=== PATIENT | female | born 1995 | race Two or more races ===

== ENCOUNTER → 2017-09-20 | Outpatient (CLI) | payer BC | END | disposition home or self-care (01) | LOC: KCIC US 15:19 | DX: R10.2 Pelvic and perineal pain (principal) | CPT/HCPCS: 76830; 76856 ==

== ENCOUNTER 2017-10-30 16:02 | Emergency (ER) | payer BC ==
[2017-10-30 16:25] LABS: URINE HCG POC HCG NEGATIVE (Negative)
[2017-10-30] MEDS ORDERED: LIDO:MAALOX 1:1 20 ML SINGLE DOSE. PO (16:45)
[2017-10-30 16:46] LABS: ADD MAN DIFF? NO
[2017-10-30 16:48] LABS: BASO # 0.1 x10^3/uL (0.0-0.2); BASO % 1 % (0-3); EOS # 0.2 x10^3/uL (0.0-0.7); EOS % 2 % (0-3); HEMOGLOBIN 13.1 g/dL (12.0-15.5); LYMPH # 3.6 x10^3/uL (1.0-4.8); LYMPH % 29 % (24-48); MEAN CORPUSCULAR HEMOGLOBIN 29 pg (25-35); MEAN CORPUSCULAR HGB CONC 34 g/dL (31-37); MEAN CORPUSCULAR VOLUME 88 fL (79-100); MONO # 0.7 x10^3/uL (0.0-1.1); MONO % 6 % (0-9); NEUT # 7.7 x10^3uL (1.8-7.7); NEUT % 63 % (31-73); PLATELET COUNT 365 x10^3/uL (140-400); RED BLOOD COUNT 4.46 x10^6/uL (3.50-5.40); RED CELL DISTRIBUTION WIDTH 12.6 % (11.5-14.5); WHITE BLOOD COUNT 12.2 x10^3/uL (4.0-11.0)
[2017-10-30] MEDS: ONDANSETRON PF 4 MG/2 ML VIAL. IV (16:57)
[2017-10-30] MEDS: FAMOTIDINE 20 MG/2 ML VIAL IVP (16:57)
[2017-10-30] MEDS: LIDO:MAALOX:DONNATAL 1:1:1 15 ML SINGLE DOSE SWSW (16:58)
[2017-10-30 17:00] LABS: ANION GAP 10 (6-14); BILIRUBIN,URINE NEGATIVE (NEG); BLOOD UREA NITROGEN 11 mg/dL (7-20); BUN/CREATININE RATIO 16 (6-20); CALCIUM 9.1 mg/dL (8.5-10.1); CARBON DIOXIDE 27 mmol/L (21-32); CHLORIDE 102 mmol/L (98-107); CLARITY,URINE CLEAR; COLOR,URINE YELLOW; CREATININE 0.7 mg/dL (0.6-1.0); GFR 103.7; GLUCOSE 91 mg/dL (70-99); GLUCOSE,URINE NEGATIVE (NEG); NITRITE,URINE NEGATIVE (NEG); PH,URINE 6.5; POTASSIUM 4.4 mmol/L (3.5-5.1); PROTEIN,URINE NEGATIVE (NEG-TRACE); SODIUM 139 mmol/L (136-145); UROBILINOGEN,URINE 0.2 mg/dL (0.2 mg/dL)
[2017-10-30 17:05] LABS: ALBUMIN 3.7 g/dL (3.4-5.0); ALBUMIN/GLOBULIN RATIO 1.1 (1.0-1.7); ALK PHOS 121 U/L (46-116); ALT (SGPT) 23 U/L (14-59); AST (SGOT) 16 U/L (15-37); LIPASE 95 U/L (73-393); NEG OBC SER NEG; POS OBC SER POS; PREG TEST PT QUAL NEGATIVE (NEG); TOTAL BILIRUBIN 0.3 mg/dL (0.2-1.0); TOTAL PROTEIN 7.1 g/dL (6.4-8.2)
[2017-10-30 17:11] LABS: BACTERIA,URINE FEW /HPF (0-FEW); SQUAMOUS EPITHELIAL CELL,UR MOD /LPF; WBC,URINE OCC /HPF (0-4)
== END 2017-10-30 19:33 | disposition home or self-care (01) ==
LOC: ER 16:02
DX: R10.13 Epigastric pain (principal); R11.2 Nausea with vomiting, unspecified; R19.7 Diarrhea, unspecified
CPT/HCPCS: 36415; 76700; 80053; 81001; 81025; 83690; 84703; 85025; 96374; 96375; 99285-25; J2405; S0028

== ENCOUNTER → 2020-03-16 | Outpatient (CLI) | payer BC ==
[2017-10-30 16:09] VITALS: BP 123/83
[~2020-03-16] MED LIST: FAMO-63 PO; OMEP20TA63 PO; ONDA4TAB7 PO; TRAM50TA PO
[2020-03-16 15:55] LABS: BASO # 0.1 x10^3/uL (0.0-0.2); BASO % 1 % (0-3); EOS # 0.2 x10^3/uL (0.0-0.7); EOS % 2 % (0-3); HEMATOCRIT 39.2 % (36.0-47.0); HEMOGLOBIN 13.4 g/dL (12.0-15.5); LYMPH # 3.7 x10^3/uL (1.0-4.8); LYMPH % 38 % (24-48); MEAN CORPUSCULAR HEMOGLOBIN 30 pg (25-35); MEAN CORPUSCULAR HGB CONC 34 g/dL (31-37); MEAN CORPUSCULAR VOLUME 88 fL (79-100); MONO # 0.6 x10^3/uL (0.0-1.1); MONO % 6 % (0-9); NEUT # 5.1 x10^3/uL (1.8-7.7); NEUT % 53 % (31-73); PLATELET COUNT 339 x10^3/uL (140-400); RED BLOOD COUNT 4.48 x10^6/uL (3.50-5.40); RED CELL DISTRIBUTION WIDTH 13.1 % (11.5-14.5); WHITE BLOOD COUNT 9.7 x10^3/uL (4.0-11.0)
[2020-03-16 17:06] LABS: FREE T4 0.82 ng/dL (0.76-1.46); THYROID STIM HORMONE (TSH) 1.468 uIU/mL (0.358-3.74)
[2020-03-16 17:07] LABS: CHOLESTEROL/HDL RATIO 3.3
[2020-03-17 00:09] LABS: HEMOGLOBIN A1C 5.5 % (4.8-5.6)
[2020-03-17 01:09] LABS: PROLACTIN 32.5 ng/mL (4.8-23.3); TESTOSTERONE TOTAL 39 ng/dL (8-48)
== END | disposition home or self-care (01) ==
LOC: LAB 15:14
PROVIDERS: ATTEND Obstetrics & Gynecology
DX: N93.9 Abnormal uterine and vaginal bleeding, unspecified (principal)
CPT/HCPCS: 36415; 80061; 82627; 83036; 84146; 84403; 84439; 84443; 85025

== ENCOUNTER → 2020-03-26 | Outpatient (CLI) | payer BC ==
[2017-10-30 16:09] VITALS: BP 123/83
--- NOTE | 2020-03-26 16:59 | RAD ---
INDICATION: Irregular menses COMPARISON: None. TECHNIQUE: Grayscale and color ultrasound images uterus and adnexa. Transabdominal and transvaginal images obtained. Transvaginal images were needed to better visualize structures that were limited on transabdominal imaging. FINDINGS: Uterus: 75 x 69 x 39 mm. Endometrial Stripe: 4 mm. Right Ovary: 34 x 25 x 21 mm. Left Ovary: 21 x 19 x 17 mm. Vascular flow identified to bilateral ovaries. There is a small amount of fluid within the endometrial stripe measuring 3 to 4 mm IMPRESSION: * Small amount of fluid within the endometrial stripe. This could be secondary to some fluid and debris or early gestational sac. Would correlate with hCG given the presence of this finding. No pole is seen. * 18 mm suspected echogenic lesion of the right ovary. One possible cause would include a hemorrhagic cyst or alternative causes such as small teratoma Electronically signed by: Varun Molina MD (03/26/2020 4:56 PM) [id number]
== END ==
LOC: US 15:47
PROVIDERS: ATTEND Obstetrics & Gynecology
DX: N93.9 Abnormal uterine and vaginal bleeding, unspecified (principal)
CPT/HCPCS: 76830; 76856

== ENCOUNTER 2020-07-21 08:59 | Observation (INO) | payer BC ==
[2017-10-30 16:09] VITALS: BP 123/83
[~2020-07-21] VITALS: Ht 160 cm; Wt 88.9 kg
[2020-07-21] MEDS ORDERED: IV RINGERS,LACTATED 1000ML 1,000 ML IV SCH (09:15)
[2020-07-21 09:35] LABS: BILIRUBIN,URINE NEGATIVE (NEG); CLARITY,URINE CLOUDY; COLOR,URINE AMBER; NITRITE,URINE NEGATIVE (NEG); PH,URINE 6.5 (<5.0-8.0); PROTEIN,URINE 30 mg/dL (NEG-TRACE); UROBILINOGEN,URINE 0.2 mg/dL (0.2 mg/dL)
[2020-07-21 09:54] LABS: BACTERIA,URINE 0 /HPF (0-FEW); RBC,URINE TNTC /HPF (0-2)
== END 2020-07-21 11:09 | disposition home or self-care (01) ==
LOC: 3 SO LND 08:59
PROVIDERS: ADMIT Obstetrics & Gynecology; ATTEND Obstetrics & Gynecology
DX: O99.891 Other specified diseases and conditions complicating pregnancy (principal); M54.5 Low back pain; O26.892 Other specified pregnancy related conditions, second trimester; R31.9 Hematuria, unspecified; Z3A.21 21 weeks gestation of pregnancy; Z79.82 Long term (current) use of aspirin
CPT/HCPCS: 81001; 87086; G0378; G0379; 59025

== ENCOUNTER → 2020-08-17 | Outpatient (CLI) | payer OTHER ==
[2017-10-30 16:09] VITALS: BP 123/83
[2020-08-17 10:44] LABS: BASO # 0.1 x10^3/uL (0.0-0.2); BASO % 1 % (0-3); EOS # 0.1 x10^3/uL (0.0-0.7); EOS % 1 % (0-3); HEMATOCRIT 36.2 % (36.0-47.0); HEMOGLOBIN 12.2 g/dL (12.0-15.5); LYMPH # 1.7 x10^3/uL (1.0-4.8); LYMPH % 14 % (24-48); MEAN CORPUSCULAR HEMOGLOBIN 30 pg (25-35); MEAN CORPUSCULAR HGB CONC 34 g/dL (31-37); MEAN CORPUSCULAR VOLUME 89 fL (79-100); MONO # 0.5 x10^3/uL (0.0-1.1); MONO % 4 % (0-9); NEUT # 10.2 x10^3/uL (1.8-7.7); NEUT % 81 % (31-73); PLATELET COUNT 314 x10^3/uL (140-400); RED BLOOD COUNT 4.06 x10^6/uL (3.50-5.40); RED CELL DISTRIBUTION WIDTH 13.7 % (11.5-14.5); WHITE BLOOD COUNT 12.6 x10^3/uL (4.0-11.0)
== END ==
LOC: LAB 09:18
PROVIDERS: ATTEND Obstetrics & Gynecology
DX: O09.92 Supervision of high risk pregnancy, unspecified, second trimester (principal); Z3A.19 19 weeks gestation of pregnancy
CPT/HCPCS: 36415; 82950; 85025

== ENCOUNTER 2020-09-02 14:48 | Observation (INO) | payer BC, OTHER ==
[~2020-09-02] VITALS: Ht 160 cm; Wt 92.2 kg
[2020-09-02 15:45] LABS: BILIRUBIN,URINE NEGATIVE (NEG); CLARITY,URINE CLEAR; COLOR,URINE YELLOW; NITRITE,URINE NEGATIVE (NEG); PH,URINE 6.5 (<5.0-8.0); PROTEIN,URINE NEGATIVE (NEG-TRACE); UROBILINOGEN,URINE 0.2 mg/dL (0.2 mg/dL)
--- NOTE | 2020-09-02 15:47 | ED.ADGEN ---
Past Medical History Past Medical History: No Pertinent History Past Surgical History: No Surgical History Smoking Status: Never Smoker Alcohol Use: Occasionally Drug Use: None General Adult EDM: Chief Complaint: Palpitations HPI: HPI: Patient is a 25 year old female who presents emergency department with complaints of feeling lightheaded, and like her heart is racing. Patient reports she has been having problems with the symptoms intermittently for the last 2 weeks. 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 Patient reports she has a history of anxiety and depression that she started taking Prozac for approximately 1 week ago. She states that the symptoms have not changed since starting the medication. She denies any cough, body aches, chest pain, fever, sore throat, abdominal pain, dysuria, or increased urinary frequency. Patient denies any vaginal bleeding, or irregular vaginal discharge. She denies any headache, vision changes, numbness, tingling, weakness, or difficulty speaking. Patient is currently , she is 1, para 0, her last menstrual cycle was on January 30, 2020. Patient reports that she has seen for the . Patient reports that she has had nausea and vomiting throughout her , she usually vomits twice a day. She denies any hematemesis, she currently denies any pain. Review of Systems: Review of Systems: Complete ROS is negative unless otherwise noted in HPI. Current Medications: Current Medications Medications (Trade) Dose Ordered Sig/Pebbles Start Time Stop Time Status Last Admin Dose Admin Sodium Chloride 1,000 ml @ 1,000 mls/hr 1X ONCE 09/02/20 16:00 09/02/20 16:59 DC 09/02/20 16:35 1,000 MLS/HR Allergies: Allergies: Allergies Coded Allergies Type Severity Reaction Last Updated Verified No Known Drug Allergies 07/21/20 No Physical Exam: PE: See Above Constitutional: Well developed, well nourished, no acute distress, non-toxic appearance. [] HENT: Normocephalic, atraumatic, bilateral external ears normal, nose normal. [] Eyes: PERRLA, EOMI, conjunctiva normal, no discharge. [] Neck: Normal range of motion, no stridor. [] Cardiovascular:Heart rate regular rhythm Lungs & Thorax: Respirations even and unlabored, no retractions, no respiratory distress Abdomen: Palpable uterine fundus above the umbilicus, nontender Skin: Warm, dry, no erythema, no rash. [] Extremities: No cyanosis, ROM intact, no edema. [] Neurologic: Alert and oriented X 3, no focal deficits noted. [] Psychologic: Affect normal, judgement normal, mood normal. [] Current Patient Data: Labs: Laboratory Tests Test 09/02/20 14:53 09/02/20 16:08 Urine Collection Type Unknown Urine Color Yellow Urine Clarity Clear Urine pH 6.5 (<5.0-8.0) Urine Specific [place] <=1.005 (1.000-1.030) Urine Protein Negative mg/dL (NEG-TRACE) Urine Glucose (UA) Negative mg/dL (NEG) Urine Ketones (Stick) Negative mg/dL (NEG) Urine Blood Negative (NEG) Urine Nitrite Negative (NEG) Urine Bilirubin Negative (NEG) Urine Urobilinogen Dipstick 0.2 mg/dL (0.2 mg/dL) Urine Leukocyte Esterase Negative (NEG) Urine RBC 0 /HPF (0-2) Urine WBC 5-10 /HPF (0-4) Urine Squamous Epithelial Cells Mod /LPF Urine Bacteria Many /HPF (0-FEW) White Blood Count 12.4 x10^3/uL (4.0-11.0) H Red Blood Count 4.31 x10^6/uL (3.50-5.40) Hemoglobin 12.7 g/dL (12.0-15.5) Hematocrit 38.1 % (36.0-47.0) Mean Corpuscular Volume 88 fL (79-100) Mean Corpuscular Hemoglobin 30 pg (25-35) Mean Corpuscular Hemoglobin Concent 33 g/dL (31-37) Red Cell Distribution Width 13.5 % (11.5-14.5) Platelet Count 310 x10^3/uL (140-400) Neutrophils (%) (Auto) 73 % (31-73) Lymphocytes (%) (Auto) 19 % (24-48) L Monocytes (%) (Auto) 6 % (0-9) Eosinophils (%) (Auto) 1 % (0-3) Basophils (%) (Auto) 1 % (0-3) Neutrophils # (Auto) 9.1 x10^3/uL (1.8-7.7) H Lymphocytes # (Auto) 2.4 x10^3/uL (1.0-4.8) Monocytes # (Auto) 0.7 x10^3/uL (0.0-1.1) Eosinophils # (Auto) 0.1 x10^3/uL (0.0-0.7) Basophils # (Auto) 0.1 x10^3/uL (0.0-0.2) Sodium Level 135 mmol/L (136-145) L Potassium Level 4.0 mmol/L (3.5-5.1) Chloride Level 102 mmol/L (98-107) Carbon Dioxide Level 23 mmol/L (21-32) Anion Gap 10 (6-14) Blood Urea Nitrogen 8 mg/dL (7-20) Creatinine 0.5 mg/dL (0.6-1.0) L Estimated GFR (Cockcroft-Gault) 149.1 BUN/Creatinine Ratio 16 (6-20) Glucose Level 69 mg/dL (70-99) L Calcium Level 8.7 mg/dL (8.5-10.1) Total Bilirubin 0.2 mg/dL (0.2-1.0) Aspartate Amino Transferase (AST) 14 U/L (15-37) L Alanine Aminotransferase (ALT) 22 U/L (14-59) Alkaline Phosphatase 120 U/L (46-116) H Total Protein 6.5 g/dL (6.4-8.2) Albumin 2.7 g/dL (3.4-5.0) L Albumin/Globulin Ratio 0.7 (1.0-1.7) L Laboratory Tests 09/02/20 16:08 Laboratory Tests 09/02/20 16:08 Vital Signs: Vital Signs Date Time Temp Pulse Resp B/P (MAP) Pulse Ox O2 Delivery O2 Flow Rate FiO2 09/02/20 17:14 88 18 104/60 (75) 100 Room Air 09/02/20 15:04 98.1 98.1 EKG: EK-NS rhythm, rate 94, normal ECG, no STEMI, read by Dr. Nino [] Heart Score: Risk Factors: Risk Factors: DM, Current or recent (<one month) smoker, HTN, HLP, family history of CAD, obesity. Risk Scores: Score 0 - 3: 2.5% MACE over next 6 weeks - Discharge Home Score 4 - 6: 20.3% MACE over next 6 weeks - Admit for Clinical Observation Score 7 - 10: 72.7% MACE over next 6 weeks - Early Invasive Strategies Radiology/Procedures: Radiology/Procedures: PROCEDURE: OB LIMITED INDICATION: Reason: PT FEELS ANXIOUS / Spl. Instructions: / History: Follow- up COMPARISON: July 13, 2020 FINDINGS: Focused limited ultrasound images are obtained through the uterus movement is seen. Cardiac activity is identified at 137 bpm. Breech presentation at time of exam. The cervix is 5 cm. Biparietal diameter 70 mm, 28 weeks 1 day Head circumference 270 mm, 29 weeks 4 day. Abdominal circumference 245 mm, 28 week 5 day Femur length 53 mm, 28 weeks 1 day. Placenta is anterior. Estimated weight 1248 g, 68th percentile IMPRESSION: * Intrauterine is identified with estimated gestational age of 28 weeks and 5 days with an estimated due date for 11/20/2020. Estimated weight is on the 68th percentile with a positive heartbeat. * Breech presentation at time of exam Electronically signed by: Varun Molina MD (09/02/2020 4:14 PM) DESKTOP- [id number] Course & Med Decision Making: Course & Med Decision Making Pertinent Labs and Imaging studies reviewed. (See chart for details) 2570- I spoke with Dr. Linares and advised of treatment plan and pt in the ER. Per Dr. Linares after ER work up send pt upstairs for stress test. CBC was unremarkable; CMP revealed sodium 135, glucose of 69, alk phos of 120, otherwise unremarkable; UA was concerning for 5-10 white blood cells and many bacteria will treat as the patient is EKG revealed no acute changes Patient was given a liter of fluid in the emergency department, she reported feeling better after IV fluids. Prescription was written for Macrobid 100 mg p.o. twice daily x7 days. I advised the patient of her hypoglycemia and educated her that low blood sugar could be what is causing her symptoms. I encouraged patient to eat regularly and to try having a snack when her symptoms developed. I instructed her to follow-up with Dr. Linares's office in the next few days, return to the ER symptoms worsen. Patient was then taken to the third floor for stress monitoring. [] Chela Disclaimer: Dragon Disclaimer: This electronic medical record was generated, in whole or in part, using a voice recognition dictation system. Departure Departure Impression: Primary Impression: UTI (urinary tract infection) Additional Impressions: Palpitations Hypoglycemia Disposition: 01 DC HOME SELF CARE/HOMELESS Condition: STABLE Referrals: Mark GAGE MD (PCP) Patient Instructions: Hypoglycemia, Gurc-gz-Rnru, Palpitations, Liyx-ec-Nrlv, - Urinary Tract Infection Additional Instructions: Fill prescription(s) and use as directed. Avoid bladder irritants such as caffeine, carbonation, and spicy foods. Increase clear fluids. Your blood sugar was only 69 today with lab work, your symptoms may be due to low blood sugar, I recommend that you eat frequent snacks with good amounts of protein. Follow up with Dr Linares in the next 1-2 days, return to the ER if symptoms worsen or fever develops. Scripts Nitrofurantoin Monohyd/M-Cryst (MACROBID 100 MG CAPSULE) 100 Mg Capsule 1 CAP PO BID for 7 Days, #14 CAP 0 Refills Prov: KEE GARCIA APRN 09/02/20 Problem Qualifiers KEE GARCIA APRN Sep 02, 2020 15:47
[2020-09-02 15:54] LABS: BACTERIA,URINE MANY /HPF (0-FEW); RBC,URINE 0 /HPF (0-2)
[2020-09-02] MEDS ORDERED: IV NORMAL SALINE 1000ML BAG 1,000 ML IV ONE (16:00)
--- NOTE | 2020-09-02 16:17 | RAD ---
INDICATION: Reason: PT FEELS ANXIOUS / Spl. Instructions: / History: Follow-up COMPARISON: July 13, 2020 FINDINGS: Focused limited ultrasound images are obtained through the uterus movement is seen. Cardiac activity is identified at 137 bpm. Breech presentation at time of exam. The cervix is 5 cm. Biparietal diameter 70 mm, 28 weeks 1 day Head circumference 270 mm, 29 weeks 4 day. Abdominal circumference 245 mm, 28 week 5 day Femur length 53 mm, 28 weeks 1 day. Placenta is anterior. Estimated weight 1248 g, 68th percentile IMPRESSION: * Intrauterine is identified with estimated gestational age of 28 weeks and 5 days with a n estimated due date for 11/20/2020. Estimated weight is on the 68th percentile with a positive heartbeat. * Breech presentation at time of exam Electronically signed by: Varun Molina MD (09/02/2020 4:14 PM) [id number]
[2020-09-02 16:19] LABS: BASO # 0.1 x10^3/uL (0.0-0.2); BASO % 1 % (0-3); EOS # 0.1 x10^3/uL (0.0-0.7); EOS % 1 % (0-3); HEMATOCRIT 38.1 % (36.0-47.0); HEMOGLOBIN 12.7 g/dL (12.0-15.5); LYMPH # 2.4 x10^3/uL (1.0-4.8); LYMPH % 19 % (24-48); MEAN CORPUSCULAR HEMOGLOBIN 30 pg (25-35); MEAN CORPUSCULAR HGB CONC 33 g/dL (31-37); MEAN CORPUSCULAR VOLUME 88 fL (79-100); MONO # 0.7 x10^3/uL (0.0-1.1); MONO % 6 % (0-9); NEUT # 9.1 x10^3/uL (1.8-7.7); NEUT % 73 % (31-73); PLATELET COUNT 310 x10^3/uL (140-400); RED BLOOD COUNT 4.31 x10^6/uL (3.50-5.40); RED CELL DISTRIBUTION WIDTH 13.5 % (11.5-14.5); WHITE BLOOD COUNT 12.4 x10^3/uL (4.0-11.0)
[2020-09-02 16:29] LABS: CALCIUM 8.7 mg/dL (8.5-10.1); CREATININE 0.5 mg/dL (0.6-1.0); GFR 149.1
[2020-09-02 16:38] LABS: ALBUMIN 2.7 g/dL (3.4-5.0); ALBUMIN/GLOBULIN RATIO 0.7 (1.0-1.7); TOTAL BILIRUBIN 0.2 mg/dL (0.2-1.0); TOTAL PROTEIN 6.5 g/dL (6.4-8.2)
[2020-09-02] MEDS ORDERED: NITR100C62 PO (17:38)
[2020-09-02 17:44] VITALS: BP 112/78
--- NOTE | 2020-09-02 18:09 | EKG ---
[facility] [address] [place] [address] Test Date: 2020-09-02 Test Time: 15:23:52 Pat Name: GUILHERME العلي Department: Room: 389 1 Gender: F [employer] Employee: : 1995 Requested By: KEE GARCIA Order Number: [id number] Reading MD: Rafita Guerrero Measurements Intervals [place] Rate: 94 P: 21 NV: 136 QRS: 3 QRSD: 80 T: 6 QT: 354 QTc: 443 Interpretive Statements SINUS RHYTHM NORMAL ECG RI6.01 No previous ECG available for comparison Electronically Signed On 09-08-2020 10:06:32 PEDICURIST by Rafita Guerrero
[2020-11-15] MEDS ORDERED: IBUP-1027 PO (14:01)
== END 2020-09-02 18:50 | disposition home or self-care (01) ==
LOC: ER 14:48 → 3 SO LND 17:19
PROVIDERS: ADMIT Obstetrics & Gynecology; ATTEND Obstetrics & Gynecology
DX: O23.43 Unspecified infection of urinary tract in pregnancy, third trimester (principal); O32.1XX0 Maternal care for breech presentation, not applicable or unspecified; O99.283 Endocrine, nutritional and metabolic diseases complicating pregnancy, third trimester; E16.2 Hypoglycemia, unspecified; O26.893 Other specified pregnancy related conditions, third trimester; R00.2 Palpitations; Z3A.28 28 weeks gestation of pregnancy
CPT/HCPCS: 36415; 59025; 76815; 80053; 81001; 85025; 87086; 93005; 96360; 99285; G0378; J7030; G0379

== ENCOUNTER → 2020-09-15 | Outpatient (CLI) | payer OTHER ==
[2020-09-02 17:44] VITALS: BP 112/78
[~2020-09-15] MED LIST changes: +NITR100C62 PO
--- NOTE | 2020-09-15 17:08 | CARD ---
MR#: [id number] Date of Study: 09/15/2020 Ordering Physician: SORIN DUPREE, Referring Physician: SORIN DUPREE, Tech: Alicia Ernandez [facility] APPROVED REPORT EXAM: Two-dimensional and M-mode echocardiogram with Doppler and color Doppler. Other Information Quality : Technically LimitedHR: 96bpm Rhythm : NSR INDICATION Palpitations 2D DIMENSIONS RVDd3.1 (2.9-3.5cm)Left Atrium(2D)3.1 (1.6-4.0cm) IVSd1.2 (0.7-1.1cm)Aortic Root(2D)2.5 (2.0-3.7cm) LVDd3.8 (3.9-5.9cm)LVOT Diameter2.0 (1.8-2.4cm) PWd0.9 (0.7-1.1cm)LVDs2.3 (2.5-4.0cm) FS (%) 38.5 %SV43.1 ml Aortic Valve AoV Peak Shamir.112.3cm/sAoV VTI19.8cm AO Peak GR.5.0mmHgLVOT Peak Shamir.95.4cm/s AO Mean GR.2mmHgAVA (VMAX)2.78cm2 Mitral Valve MV E Zubyjvnb39.1cm/sMV DECEL SOVI936mn MV A Ldgeeuwi62.8cm/sE/A Ratio1.2 LEFT VENTRICLE The left ventricle is normal size. There is normal left ventricular wall thickness. The left ventricu lar systolic function is normal and the ejection fraction is within normal range. Estimated ejection fraction 55-60%. There is normal LV segmental wall motion. The left ventricular diastolic function a nd filling is normal for age. RIGHT VENTRICLE The right ventricle is normal size. There is normal right ventricular wall thickness. The right ventr icular systolic function is normal. ATRIA The left atrium size is normal. The right atrium size is normal. The interatrial septum is intact wit h no evidence for an atrial septal defect or patent foramen ovale as noted on 2-D or Doppler imaging. AORTIC VALVE The aortic valve is normal in structure and function. Doppler and Color Flow revealed no significant aortic regurgitation. There is no significant aortic valvular stenosis. MITRAL VALVE The mitral valve is normal in structure and function. There is no evidence of mitral valve prolapse. There is no mitral valve stenosis. Doppler and Color-flow revealed trace mitral regurgitation. TRICUSPID VALVE The tricuspid valve is normal in structure and function. Doppler and Color Flow revealed no tricuspid valve regurgitation noted. There is no tricuspid valve stenosis. PULMONIC VALVE The pulmonary valve is normal in structure and function. Doppler and Color Flow revealed no pulmonic valvular regurgitation. GREAT VESSELS The aortic root is normal in size. The ascending aorta is normal in size. The IVC is normal in size a nd collapses >50% with inspiration. PERICARDIAL EFFUSION There is no evidence of significant pericardial effusion. Critical Notification Critical Value: No <Conclusion> The left ventricle is normal size. The left ventricular systolic function is normal and the ejection fraction is within normal range. Estimated ejection fraction 55-60%. Doppler and Color Flow revealed no significant aortic regurgitation. There is no significant aortic valvular stenosis. Doppler and Color-flow revealed trace mitral regurgitation. Doppler and Color Flow revealed no tricuspid valve regurgitation noted. Signed by : Kory Reddy MD Electronically Approved : 09/15/2020 17:07:49
== END ==
LOC: ECHO 14:46
PROVIDERS: ATTEND Internal Medicine Cardiovascular Disease
DX: R00.2 Palpitations (principal)
CPT/HCPCS: 93306

== ENCOUNTER 2020-12-23 23:48 | Emergency (ER) | payer OTHER ==
[~2020-12-23] VITALS: Ht 160 cm; Wt 88.0 kg
[~2020-12-23 23:48] MED LIST changes: +IBUP-1027 PO
[2020-12-24] MEDS ORDERED: MORPHINE SULFATE 10 MG/ML VIAL. ONE (00:28)
[2020-12-24] MEDS ORDERED: KETOROLAC 30 MG/ML VIAL. ONE (00:29)
[2020-12-24] MEDS ORDERED: ONDANSETRON PF 4 MG/2 ML VIAL. ONE (00:29)
[2020-12-24] MEDS ORDERED: MORPHINE SULFATE 10 MG/ML VIAL. IV ONE ×2 (00:30→01:15)
[2020-12-24] MEDS ORDERED: ONDANSETRON PF 4 MG/2 ML VIAL. IVP ONE (00:30)
[2020-12-24] MEDS ORDERED: KETOROLAC 30 MG/ML VIAL. IVP ONE (00:30)
[2020-12-24] MEDS ORDERED: IV NORMAL SALINE 1000ML BAG 1,000 ML IV ONE (00:30)
[2020-12-24 00:47] LABS: BASO # 0.1 x10^3/uL (0.0-0.2); BASO % 1 % (0-3); EOS # 0.6 x10^3/uL (0.0-0.7); EOS % 6 % (0-3); HEMATOCRIT 37.5 % (36.0-47.0); HEMOGLOBIN 12.5 g/dL (12.0-15.5); LYMPH % 18 % (24-48); MEAN CORPUSCULAR HEMOGLOBIN 29 pg (25-35); MEAN CORPUSCULAR HGB CONC 33 g/dL (31-37); MEAN CORPUSCULAR VOLUME 88 fL (79-100); MONO # 0.8 x10^3/uL (0.0-1.1); MONO % 7 % (0-9); NEUT # 7.8 x10^3/uL (1.8-7.7); NEUT % 69 % (31-73); PLATELET COUNT 365 x10^3/uL (140-400); RED BLOOD COUNT 4.27 x10^6/uL (3.50-5.40); RED CELL DISTRIBUTION WIDTH 13.7 % (11.5-14.5); WHITE BLOOD COUNT 11.4 x10^3/uL (4.0-11.0)
[2020-12-24 00:47] LABS: BILIRUBIN,URINE NEGATIVE (NEG); CLARITY,URINE CLOUDY; COLOR,URINE YELLOW; NITRITE,URINE NEGATIVE (NEG); PROTEIN,URINE 30 mg/dL (NEG-TRACE); UROBILINOGEN,URINE 0.2 mg/dL (0.2 mg/dL)
[2020-12-24 00:53] LABS: BACTERIA,URINE MANY /HPF (0-FEW); WBC,URINE >40 /HPF (0-4)
[2020-12-24 00:54] LABS: CALCIUM 8.5 mg/dL (8.5-10.1); POTASSIUM 3.8 mmol/L (3.5-5.1)
--- NOTE | 2020-12-24 00:55 | RAD ---
Abdominal and Pelvis CT, Without Contrast: History: Reason: severe R flank pain / Spl. Instructions: / History: Comparison: None. Procedure: Axial images are obtained of the abdomen and pelvis, without IV or oral contrast. Oral Contrast: No Findings: Evaluation of solid organs is limited without contrast. Liver: Normal. Spleen: Normal. Pancreas: Normal. Adrenal Glands: Normal. Kidneys: There is moderate right hydronephrosis secondary to a 6 mm stone in the proximal right urete r.. There is no free air or free fluid. There is no lymphadenopathy. The urinary bladder appears normal. There is no pericolonic inflammation identified. Impression: Moderate hydronephrosis secondary to a 6 mm stone in the proximal right ureter. End impression PQRS Compliance Statement: One or more of the following individualized dose reduction techniques were utilized for this examinat ion: 1. Automated exposure control 2. Adjustment of the mA and/or kV according to patient size 3. Use of iterative reconstruction technique Electronically signed by: Tre Layne III, MD (12/24/2020 12:52 AM) [facility]
[2020-12-24 01:01] LABS: ALBUMIN 3.5 g/dL (3.4-5.0); ALBUMIN/GLOBULIN RATIO 1.1 (1.0-1.7); TOTAL BILIRUBIN 0.2 mg/dL (0.2-1.0); TOTAL PROTEIN 6.8 g/dL (6.4-8.2)
[2020-12-24] MEDS ORDERED: cefTRIAXone IV Push 1 GM VIAL. IVP ONE (02:00)
--- NOTE | 2020-12-24 02:08 | ED.ADGEN ---
Past Medical History Past Medical History: Anxiety, Bipolar, Other Additional Past Medical Histor: pre-eclampsia Past Surgical History: No Surgical History Smoking Status: Never Smoker Alcohol Use: None Drug Use: None General Adult EDM: Chief Complaint: FLANK PAIN HPI: HPI: Patient is a 25-year-old previously healthy female who presents to the emergency room complaining of severe right-sided flank pain. Patient states this started at 9 PM this evening. She states that she has never had pain like this before. She states that they are looking into her gallbladder to see if she has a gallbladder problem currently. She has had significant nausea and vomiting since this started. Nothing seems to make the pain better or worse. She did try some Tylenol without any relief. Pain feels like a sharp stabbing constant pain. It has progressively gotten worse. She denies any kind of fever. She is currently breast-feeding. She is 6 weeks . She is on doxycycline at this time for mastitis. She has not had any other complications. Review of Systems: Review of Systems: Complete ROS is negative unless otherwise documented in HPI Current Medications: Current Medications Medications (Trade) Dose Ordered Sig/Pebbles Start Time Stop Time Status Last Admin Dose Admin Ceftriaxone Sodium (Rocephin) 1 gm 1X ONCE 12/24/20 02:00 12/24/20 02:01 DC 12/24/20 02:27 1 GM Ketorolac Tromethamine (Toradol 30mg Vial) 30 mg 1X ONCE 12/24/20 00:30 12/24/20 00:31 DC 12/24/20 00:31 30 MG Morphine Sulfate (Morphine Sulfate) 5 mg 1X ONCE 12/24/20 01:15 12/24/20 01:16 DC 12/24/20 01:22 5 MG Ondansetron HCl (Zofran) 4 mg 1X ONCE 12/24/20 00:30 12/24/20 00:31 DC 12/24/20 00:32 4 MG Sodium Chloride 1,000 ml @ 1,000 mls/hr 1X ONCE 12/24/20 00:30 12/24/20 01:29 DC 12/24/20 00:32 1,000 MLS/HR Allergies: Allergies: Allergies Coded Allergies Type Severity Reaction Last Updated Verified No Known Drug Allergies 07/21/20 No Physical Exam: PE: General: Awake, alert, moderate distress. Well Nourished, well hydrated. Cooperative HEENT: Atraumatic, EOMI, PERRL, airway patent, moist oral mucosa Neck: Supple, trachea midline Respiratory: CTA bilaterally, normal effort, no wheezing/crackles CV: RRR, no murmur, cap refill <2 GI: Soft, nondistended, nontender, no masses MSK: No obvious deformities Skin: Warm, dry, intact Neuro: A&O x3, speech NL, sensory and motor grossly intact, no focal deficits Psych: Normal affect, normal mood, not suicidal or homicidal Current Patient Data: Labs: Laboratory Tests Test 12/24/20 00:12 12/24/20 00:13 12/24/20 00:20 12/24/20 02:30 Urine Collection Type Unknown Urine Color Yellow Urine Clarity Cloudy Urine pH 6.0 (<5.0-8.0) Urine Specific [place] >=1.030 (1.000-1.030) Urine Protein 30 mg/dL (NEG-TRACE) Urine Glucose (UA) Negative mg/dL (NEG) Urine Ketones (Stick) Negative mg/dL (NEG) Urine Blood Large (NEG) Urine Nitrite Negative (NEG) Urine Bilirubin Negative (NEG) Urine Urobilinogen Dipstick 0.2 mg/dL (0.2 mg/dL) Urine Leukocyte Esterase Moderate (NEG) Urine RBC 11-20 /HPF (0-2) Urine WBC >40 /HPF (0-4) Urine Squamous Epithelial Cells Many /LPF Urine Bacteria Many /HPF (0-FEW) Urine Mucus Marked /LPF POC Urine HCG, Qualitative Hcg negative (Negative) White Blood Count 11.4 x10^3/uL (4.0-11.0) H Red Blood Count 4.27 x10^6/uL (3.50-5.40) Hemoglobin 12.5 g/dL (12.0-15.5) Hematocrit 37.5 % (36.0-47.0) Mean Corpuscular Volume 88 fL (79-100) Mean Corpuscular Hemoglobin 29 pg (25-35) Mean Corpuscular Hemoglobin Concent 33 g/dL (31-37) Red Cell Distribution Width 13.7 % (11.5-14.5) Platelet Count 365 x10^3/uL (140-400) Neutrophils (%) (Auto) 69 % (31-73) Lymphocytes (%) (Auto) 18 % (24-48) L Monocytes (%) (Auto) 7 % (0-9) Eosinophils (%) (Auto) 6 % (0-3) H Basophils (%) (Auto) 1 % (0-3) Neutrophils # (Auto) 7.8 x10^3/uL (1.8-7.7) H Lymphocytes # (Auto) 2.0 x10^3/uL (1.0-4.8) Monocytes # (Auto) 0.8 x10^3/uL (0.0-1.1) Eosinophils # (Auto) 0.6 x10^3/uL (0.0-0.7) Basophils # (Auto) 0.1 x10^3/uL (0.0-0.2) Sodium Level 139 mmol/L (136-145) Potassium Level 3.8 mmol/L (3.5-5.1) Chloride Level 104 mmol/L (98-107) Carbon Dioxide Level 25 mmol/L (21-32) Anion Gap 10 (6-14) Blood Urea Nitrogen 17 mg/dL (7-20) Creatinine 1.0 mg/dL (0.6-1.0) Estimated GFR (Cockcroft-Gault) 67.0 BUN/Creatinine Ratio 17 (6-20) Glucose Level 110 mg/dL (70-99) H Calcium Level 8.5 mg/dL (8.5-10.1) Total Bilirubin 0.2 mg/dL (0.2-1.0) Aspartate Amino Transferase (AST) 18 U/L (15-37) Alanine Aminotransferase (ALT) 30 U/L (14-59) Alkaline Phosphatase 177 U/L (46-116) H Total Protein 6.8 g/dL (6.4-8.2) Albumin 3.5 g/dL (3.4-5.0) Albumin/Globulin Ratio 1.1 (1.0-1.7) Lipase 82 U/L (73-393) SARS-CoV-2 RNA (YANI) Negative (Negative) Test 12/24/20 02:41 SARS-CoV-2 Antigen (Rapid) Negative (NEGATIVE) Laboratory Tests 12/24/20 00:20 Laboratory Tests 12/24/20 00:20 Vital Signs: Vital Signs Date Time Temp Pulse Resp B/P (MAP) Pulse Ox O2 Delivery O2 Flow Rate FiO2 12/24/20 04:08 77 20 99/62 (74) 96 Room Air 12/24/20 00:05 98.0 98.0 EKG: EKG: [] Heart Score: C/O Chest Pain: N/A Risk Factors: Risk Factors: DM, Current or recent (<one month) smoker, HTN, HLP, family hi story of CAD, obesity. Risk Scores: Score 0 - 3: 2.5% MACE over next 6 weeks - Discharge Home Score 4 - 6: 20.3% MACE over next 6 weeks - Admit for Clinical Observation Score 7 - 10: 72.7% MACE over next 6 weeks - Early Invasive Strategies Radiology/Procedures: Radiology/Procedures: [] Course & Med Decision Making: Course & Med Decision Making Pertinent Labs and Imaging studies reviewed. (See chart for details) Patient is a 25 year old who presents to the Emergency Room complaining of severe right-sided flank pain. On exam, patient is in moderate distress holding her right flank. Patient's presentation is concerning for a possible kidney stone. Patient was given Toradol and morphine for pain relief. CBC, BMP, UA were ordered to evaluate for kidney function and infection. CT abdomen and pelvis without contrast was ordered to evaluate for a kidney stone. CT shows 6 mm kidney stone with hydronephrosis. Patient currently has an obstructing, infected kidney stone. Patient will be treated symptomatically and transferred for urology. Patient is accepted at [facility]. Chela Disclaimer: Chela Disclaimer: This electronic medical record was generated, in whole or in part, using a voice recognition dictation system. Departure Departure Impression: Primary Impression: Hydronephrosis concurrent with and due to calculi of kidney and ureter Additional Impression: UTI (urinary tract infection) Disposition: 02 SHORT TERM HOSPITAL Condition: IMPROVED Referrals: Mark GAGE MD (PCP) Problem Qualifiers CORRY CONSTANTINO MD December 24, 2020 02:08
[2020-12-24 04:08] VITALS: BP 99/62
== END 2020-12-24 04:18 | disposition short-term general hospital (02) ==
LOC: ER 23:48
DX: O99.893 Other specified diseases and conditions complicating puerperium (principal); N13.2 Hydronephrosis with renal and ureteral calculous obstruction; Z20.822 Contact with and (suspected) exposure to COVID-19; O86.20 Urinary tract infection following delivery, unspecified; F31.9 Bipolar disorder, unspecified
CPT/HCPCS: 36415; 74176; 80053; 81001; 81025; 83690; 85025; 87426; 96361; 96374; 96375; 96376; 99285; J0696; J1885; J2270; J2405; J7030; U0003; U0005

== ENCOUNTER → 2021-01-27 | Outpatient (CLI) | payer OTHER ==
--- NOTE | 2021-01-27 11:57 | RAD ---
EXAM: Abdomen sonogram. HISTORY: Pain. TECHNIQUE: Sonographic imaging of the abdomen was performed. COMPARISON: 12/24/2020. FINDINGS: The liver is upper normal in size. There is hepatic steatosis. No focal hepatic lesion is s een. The gallbladder is unremarkable. The common bile duct is normal in caliber. The right kidney is unremarkable. The pancreas and inferior vena cava are obscured due to bowel gas. IMPRESSION: 1. Hepatic steatosis. 2. Obscured midline structures due to bowel gas. 3. No acute sonographic finding. Electronically signed by: Katei Gibson MD (01/27/2021 11:54 AM) [id number]
--- NOTE | 2021-01-27 12:40 | RAD ---
EXAM: Nuclear hepatobiliary scan. HISTORY: Pain. TECHNIQUE: Following intravenous administration of 5.1 mCi Tc 99m Choletec, anterior images of the ab domen were obtained at five minute intervals through one hour. Subsequently, a fatty meal was ingeste d and additional images to assess gallbladder ejection fraction were obtained. FINDINGS: There is prompt radiotracer uptake by the liver. No focal defect is seen. There is normal e xcretion into the biliary tree. The gallbladder is visualized within 5 minutes and there is free flow into the duodenum. The gallbladder ejection fraction is 53 percent. IMPRESSION: Normal radionuclide biliary scan. Electronically signed by: Katie Gibson MD (01/27/2021 12:38 PM) [id number]
== END ==
LOC: US 08:56
PROVIDERS: ATTEND Internal Medicine Gastroenterology
DX: K76.0 Fatty (change of) liver, not elsewhere classified (principal)
CPT/HCPCS: 76705; 78227; A9537

== ENCOUNTER 2021-04-02 18:19 | Emergency (ER) | payer OTHER ==
[~2021-04-02] VITALS: Ht 160 cm; Wt 85.0 kg
[2021-04-02 18:32] VITALS: BP 107/58
--- NOTE | 2021-04-02 18:58 | PHYS DOC ---
Past Medical History Past Medical History: Anxiety, Bipolar, Depression, GERD, Kidney Stone, Other Additional Past Medical Histor: pre-eclampsia Past Surgical History: Other Additional Past Surgical Histo: KIDNEY STONE REMOVAL. Smoking Status: Never Smoker Alcohol Use: None Drug Use: None General Adult EDM: Chief Complaint: LOWEREXTREMITY INJURY HPI: HPI: Patient is a 26 year old female presents with report of left ankle pain and lateral swelling after "missing the last step" at her home while going down the stairs with her infant in its carrier. Patient reports she ended up falling however was able to let the carrier land softly. Patient reports her infant child is fine. Denies head injury or neck pain. Denies loss of consciousness. Reports she has had significant pain and is unable to ambulate due to the pain in her ankle. Denies prior injury. Denies taking any medication prior to arr ival. Denies . Reports last menstrual period was over 1 year ago as her infant is only 4 months old and she is currently breast-feeding. Review of Systems: Review of Systems: Constitutional: Denies fever or chills Eyes: Denies redness or eye pain HENT: Denies nasal congestion or epistaxis Respiratory: Denies cough or shortness of breath Cardiovascular: Denies chest pain or palpitations GI: Denies abdominal pain, nausea, or vomiting : Denies dysuria or hematuria Musculoskeletal: Denies neck or back pain; reports left ankle pain and swelling Integument: Denies rash or skin lesions Neurologic: Denies headache, focal weakness or sensory changes Complete systems were reviewed and found to be within normal limits, except as documented in this note. Heart Score: C/O Chest Pain: N/A Allergies: Allergies: Allergies Coded Allergies Type Severity Reaction Last Updated Verified No Known Drug Allergies 07/21/20 No Physical Exam: PE: Constitutional: Well developed, well nourished, no acute distress, non-toxic appearance HENT: Normocephalic, atraumatic Eyes: Conjunctiva normal, no discharge Neck: Normal range of motion, supple Lungs & Thorax: No respiratory distress, equal chest rise and fall Skin: Warm, dry, no erythema, no rash, left lateral ankle edema Extremities: Left lateral and medial malleoli tenderness, no deformity, DP and PT +2 and equal bilaterally, ROM intact with tenderness on eversion of ankle, moderate lateral edema Neurologic: Alert and oriented X 3, normal motor function, normal sensory function, no focal deficits noted Psychologic: Affect normal, judgment normal Current Patient Data: Vital Signs: Vital Signs Date Time Temp Pulse Resp B/P (MAP) Pulse Ox O2 Delivery O2 Flow Rate FiO2 04/02/21 18:32 98.9 82 12 107/58 (74) 100 Room Air 98.9 EKG: EKG: [] Radiology/Procedures: Radiology/Procedures: PROCEDURE: ANKLE LEFT 3V Exam: Left ankle 3 views INDICATION: Pain, lateral and medial malleolus status post rolling ankle TECHNIQUE: Frontal, lateral and oblique views of the left ankle Comparisons: None FINDINGS: Bone mineralization is normal. Mild soft tissue swelling overlying the lateral midfoot. Joint spaces are well-maintained. No acute or healed fractures. IMPRESSION: Mild soft tissue swelling at the midfoot without underlying osseous abnormality identified. Electronically signed by: Kika Villarreal MD (04/02/2021 7:26 PM) [facility] Course & Med Decision Making: Course & Med Decision Making Pertinent Imaging studies reviewed. (See chart for details) Patient presents with report of left ankle injury. Denies other injury. Patient neurologically intact. Limb neurovascularly intact. Pain addressed. Ice applied. X-ray obtained without signs of fracture dislocation. Demian wrap and crutches provided. Patient educated on RICE. Patient stable for discharge with outpatient follow-up with PCP/orthopedics. Orthopedic referral provided. Discussed findings and plan with patient and spouse, who acknowledge understanding and agreement. Chela Disclaimer: Chela Disclaimer: This electronic medical record was generated, in whole or in part, using a voice recognition dictation system. Splinting Splinting : Location: Left ankle Pre-Made Type: DEMIAN bandage Pre-Proc Neuro Vasc Exam: normal Post-Proc Neuro Vasc Exam: normal, unchanged from pre-exam Departure Departure Impression: Primary Impression: Left ankle sprain Qualified Codes: S93.402A - Sprain of unspecified ligament of left ankle, initial encounter Disposition: HOME / SELF CARE / HOMELESS Condition: STABLE Referrals: Mark GAGE MD (PCP) TATA RESENDIZ MD Patient Instructions: Ankle Sprain, [id number], Crutch Use, [id number], Elastic Bandage and RICE Additional Instructions: ICE area of discomfort 20 min on then leave off next 20 mins. Repeat several times daily as needed for next few days. Use over the counter Tylenol and/or Ibuprofen for pain or discomfort. NIKKI RAMOS DO Apr 02, 2021 18:58
[2021-04-02] MEDS ORDERED: IBUPROFEN 200 MG TABLET. PO ONE (19:00)
--- NOTE | 2021-04-02 19:28 | RAD ---
Exam: Left ankle 3 views INDICATION: Pain, lateral and medial malleolus status post rolling ankle TECHNIQUE: Frontal, lateral and oblique views of the left ankle Comparisons: None FINDINGS: Bone mineralization is normal. Mild soft tissue swelling overlying the lateral midfoot. Joint spaces are well-maintained. No acute or healed fractures. IMPRESSION: Mild soft tissue swelling at the midfoot without underlying osseous abnormality identified. Electronically signed by: Kika Villarreal MD (04/02/2021 7:26 PM) [facility]
== END 2021-04-02 19:30 | disposition home or self-care (01) ==
LOC: ER 18:19
DX: S93.402A Sprain of unspecified ligament of left ankle, initial encounter (principal); F41.9 Anxiety disorder, unspecified; F31.9 Bipolar disorder, unspecified; K21.9 Gastro-esophageal reflux disease without esophagitis; Z87.442 Personal history of urinary calculi; W10.8XXA Fall (on) (from) other stairs and steps, initial encounter; Y93.89 Activity, other specified; Y92.89 Other specified places as the place of occurrence of the external cause; Y99.8 Other external cause status
CPT/HCPCS: 73610; 99283

== ENCOUNTER 2021-05-10 10:37 | Day surgery (SDC) | payer OTHER ==
[~2021-05-10] VITALS: Ht 160 cm; Wt 87.5 kg
[~2021-05-10 10:37] MED LIST changes: +FLUO40CA2 PO; +LURA20TA PO; +PROCHLORPERAZINE 10 MG/2 ML VIAL. IVP PRN; +PROP10TA PO; +fentaNYL PF VIAL 100 MCG/2 ML VIAL IVP PRN
[2021-05-10 11:01] VITALS: BP 111/69
[2021-05-10] MEDS: IV RINGERS,LACTATED 1000ML 1,000 ML IV SCH ×2 (11:11→15:22)
[2021-05-10] MEDS ORDERED: PROPOFOL 10 MG/ML (20ML) VIAL. IV ONE (13:40)
[2021-05-10] MEDS ORDERED: LIDOCAINE 2% PF 5 ML VIAL. ONE (13:40)
[2021-05-10] MEDS ORDERED: GLYCOPYRROLATE 1 MG/5 ML VIAL. ONE (13:41)
[2021-05-10] MEDS ORDERED: fentaNYL PF VIAL 100 MCG/2 ML VIAL ONE ×2 (13:41→14:37)
[2021-05-10] MEDS ORDERED: BUPIVACAINE MPF 0.5% 30 ML VIAL. ONE (13:41)
[2021-05-10] MEDS ORDERED: ROCURONIUM 50 MG/5 ML VIAL. ONE (13:41)
[2021-05-10] MEDS ORDERED: IOHEXOL 300 MG/ML 50 ML VIAL. ONE (13:41)
[2021-05-10] MEDS ORDERED: NEOSTIGMINE METHYLSULFATE 5 MG/5 ML SYRINGE. ONE (13:41)
[2021-05-10] MEDS ORDERED: SURGICEL HEMOSTAT 2X14 EACH. ONE (13:41)
[2021-05-10] MEDS ORDERED: ePHEDrine PF IN SALINE 50 MG/10 ML SYRINGE. IV ONE (14:41)
[2021-05-10] MEDS ORDERED: DEXAMETHASONE SOD PHOS 4 MG/ML VIAL ONE (14:41)
[2021-05-10] MEDS ORDERED: ONDANSETRON PF 4 MG/2 ML VIAL. ONE (14:41)
--- NOTE | 2021-05-10 14:48 | RAD ---
EXAM: INTRAOPERATIVE CHOLANGIOGRAM. HISTORY: Gallbladder disease. Intraoperative cholangiogram with cholecystectomy. COMPARISON: None. FINDINGS: 3 fluoroscopic images are obtained intraoperatively during injection of the cystic duct rem nant after cholecystectomy. There are no filling defects to suggest retained stones. The common duct is not dilated. Fluoroscopy time 0.13 minutes. IMPRESSION: 1. No evidence of retained stones. Electronically signed by: Soco Rees MD (05/10/2021 2:46 PM) [id number]
--- NOTE | 2021-05-10 14:48 | PDOC4 ---
Operative Note Operative Note Operative Note: Preoperative Diagnosis: Biliary dyskinesia Postoperative Diagnosis: Same Procedure: Laparoscopic cholecystectomy with intraoperative cholangiogram Surgeons: Stanley Concert Pianist: Catia WYNNE Anesthesia: Gen. Estimated Blood Loss: 10 mL Specimen: Gallbladder to pathology Drains: None Complications: None Indications: The patient is a 26-year-old female who is referred with suspected biliary dyskinesia. Surgical treatment was offered by means of a laparoscopic cholecystectomy. The risks of surgery were discussed which include bleeding, infection, bile duct injury, bile leak, pain, the potential for additional surgeries or procedures. The patient understands and would like to proceed. Description: The patient was taken to the operating room and laid supine on the operating table. General anesthesia was performed. The abdomen was prepped with ChloraPrep and draped in a standard surgical fashion. A small inf raumbilical incision was made with a scalpel. The Veress needle was then inserted and a pneumoperitoneum was then created. A 5 mm trocar was then inserted and the laparoscope was introduced. In the upper midabdomen a 5 mm trocar was inserted and in the right upper quadrant two 2.3 mm mini lap graspers were inserted. The gallbladder was retracted cephalad. There was significant fatty infiltration of the liver. The cystic duct was dissected free from surrounding tissues. One clip was placed on the duct near the gallbladder junction. An opening was made in the duct and a cholangiocatheter placed within and secured with a clip. Using contrast dye and fluoroscopy an intraoperative cholangiogram was performed that appeared unremarkable. The clip and catheter were then withdrawn. Three clips were placed on the cystic duct and it was divided. The cystic artery was then identified, dissected free, doubly clipped and divided as well. The gallbladder was then mobilized away from the liver with cautery. The umbilical 5 millimeter trocar was exchanged for an 11 millimeter trocar. The gallbladder was then placed in an endoscopic bag and extracted at the umbilical trocar site. The fascia there was closed with an 0 Vicryl suture and infiltrated with 0.5% marcaine. All blood and irrigation fluid was suctioned and hemostasis was good. The remaining ports were removed and the pneumoperitoneum was relieved. The skin incisions were closed using 4-0 Monocryl suture. Steri-Strips and dressings were then applied. The patient tolerated the procedure well and was sent to the recovery room in stable condition. At the end of the case all counts were correct. LATONIA NOVAK MD May 10, 2021 14:48
[2021-05-10] MEDS ORDERED: OXYC-325 PO (14:50)
--- NOTE | 2021-05-10 14:52 | DISCH ---
DISCHARGE INSTRUCTIONS Condition on Discharge Condition on Discharge: Stable Activity After Discharge Activity Instructions for Disc: Other, see below (no lifting over 20 lbs, no driving while taking pain meds) Diet after Discharge Diet after Discharge: Regular Wound Incision Care Wound/Incision Care: Other, see below (may remove bandaids tomorrow, steristrips will fall off on their own) Follow-Up Follow up with: Dr Novak in 2 weeks in office, call for appointment [phone] LATONIA NOVAK MD May 10, 2021 14:52
--- NOTE | 2021-05-10 15:07 | RAD ---
Exam: Abdomen one view INDICATION: Postop KUB in OR, missing needle TECHNIQUE: Supine view the abdomen Comparisons: None FINDINGS: Surgical clips noted in the right upper quadrant cholecystectomy. No other radiopaque foreign body is identified within the abdomen. Air and stool are noted throughout the colon to level the rectum nonobstructive bowel gas pattern. No suspicious masses or calcifications. IMPRESSION: No unexpected radiopaque foreign body identified. Electronically signed by: Kika Villarreal MD (05/10/2021 3:05 PM) [facility]
[2021-05-10] MEDS ORDERED: MORPHINE SULFATE 2 MG/ML INJ. ONE (15:10)
[2021-05-10] MEDS: MORPHINE SULFATE 2 MG/ML INJ. IVP PRN ×2 (15:21→15:41)
[2021-05-10] MEDS ORDERED: HYDROmorphone 2 MG/ML VIAL ONE (15:42)
[2021-05-10] MEDS: HYDROmorphone 2 MG/ML VIAL IVP PRN ×4 (15:45→16:52)
[2021-05-10] MEDS ORDERED: oxyCODONE/APAP 5/325 1 TAB TABLET PO ONE (16:15)
[2021-05-10 17:10] VITALS: BP 118/75
--- NOTE | 2021-05-12 16:17 | PATHOLOGY ---
[facility] Accession Number: [id number] . 01 Material submitted: . gallbladder - GALLBLADDER . 01 Clinical history: . LAP QUINTON BILIARY DYSKINESIA . 02 Diagnosis: Gallbladder, laparoscopic cholecystectomy: - Cholelithiasis. - Cholesterolosis, focal. - Chronic cholecystitis. LBQ 05/12/2021 1151 Local . 02 Comment: There is no evidence of malignancy. (JPM/db; 05/12/2021) . 02 Electronically signed: . Michael Melendez MD, Pathologist NPI- [id number] . 01 Gross description: . Fixative: Formalin Labeled: Gallbladder Specimen received: Intact gallbladder Dimensions: 8.3 x 2.8 x 2.6 cm Serosa: Light norris-olmstead Lymph node: None identified Mucosa: Velvety and bile-stained Average wall thickness: Up to 0.2 cm Calculi: Present, yellow and friable Abnormalities: None identified . A1- Hospital Clerk body, fundus, and the cystic duct margin. ([facility]; 05/11/2021) [facility] 05/11/2021 1639 Local . 02 Pathologist provided ICD-10: K80.10, K81.1 . 02 CPT . 661533 Specimen Comment: A courtesy copy of this report has been sent to [phone] Specimen Comment: [phone] Specimen Comment: Report sent to / DR HERNANDEZ Performed at: 01 [facility] [address], [place] [id number] MD Juancarlos Huggins MD Phone: [phone] Performed at: 02 [facility] [address] [place], [place] [id number] MD Michael Melendez MD Phone: [phone]
== END 2021-05-10 17:15 | disposition home or self-care (01) ==
LOC: SURG 10:37
PROVIDERS: ATTEND Surgery
DX: K82.8 Other specified diseases of gallbladder (principal); F41.9 Anxiety disorder, unspecified; Z79.899 Other long term (current) drug therapy; Z98.890 Other specified postprocedural states
CPT/HCPCS: 47563; 74018; 74300; 81025; A4213; A4314; A4364; A4930; A6219; C1887; J0690; J1100; J1170; J2270; J2405; J2704; J2710; J3010; J3490; Q9967; A4452; A4657

== ENCOUNTER → 2021-08-23 | Outpatient (CLI) | payer OTHER ==
[~2021-08-23] MED LIST changes: +CYCL10TA19 PO; +ONDA4TAB12 PO; +OXYC-325 PO; -PROCHLORPERAZINE 10 MG/2 ML VIAL. IVP PRN; -fentaNYL PF VIAL 100 MCG/2 ML VIAL IVP PRN
--- NOTE | 2021-08-23 08:38 | RAD ---
EXAM: Abdomen sonogram. HISTORY: Nausea and vomiting. TECHNIQUE: Sonographic imaging of the abdomen was performed. COMPARISON: None. FINDINGS: There is hepatic steatosis. No focal hepatic lesion is seen. The common bile duct is border line dilated for patient age. The gallbladder is surgically absent. The kidneys and spleen are unrema rkable. The pancreas, aorta and inferior vena cava are partially obscured due to bowel gas. IMPRESSION: 1. Hepatic steatosis. 2. Borderline dilated common bile duct, likely due to reservoir effect status post cholecystectomy. 3. Obscured midline structures due to bowel gas. Electronically signed by: Katie Gibson MD (08/23/2021 8:35 AM) [id number]
== END ==
LOC: US 08:06
PROVIDERS: ATTEND Family Medicine
DX: K76.0 Fatty (change of) liver, not elsewhere classified (principal); R11.2 Nausea with vomiting, unspecified
CPT/HCPCS: 76700

== ENCOUNTER 2021-08-25 22:53 | Emergency (ER) | payer OTHER ==
[~2021-08-25] VITALS: Ht 160 cm; Wt 86.4 kg
[~2021-08-25 22:53] MED LIST changes: -CYCL10TA19 PO; -ONDA4TAB12 PO
[2021-08-25 23:27] VITALS: BP 112/78
[2021-08-26] MEDS ORDERED: ONDA4TAB12 PO (00:33)
[2021-08-26] MEDS ORDERED: CYCL10TA19 PO (00:33)
--- NOTE | 2021-08-26 00:34 | PHYS DOC ---
Past Medical History Past Medical History: Anxiety, Bipolar, Depression, GERD, Kidney Stone, Other Additional Past Medical Histor: pre-eclampsia Past Surgical History: Cholecystectomy Additional Past Surgical Histo: kidney stones Smoking Status: Never Smoker Alcohol Use: None Drug Use: None General Adult EDM: Chief Complaint: PAIN CONTROL HPI: HPI: Patient is a 26 year old female with a history of anxiety, bipolar, depression, who presents to the ED today complaining of 8 out of 10 intermittent sharp right upper quadrant abdominal pain, symptoms of been going on since April 2021 after her gallbladder was removed. She states she is also had chronic nausea, vomiting, diarrhea and her neck and back hurts from vomiting. Patient denies anything specifically relieving her pain but states the vomiting exacerbates it. Patient states she was seen by her PCP who referred her to GI, she has also be en seen by the general surgeon, she states they have done multiple tests including MRI of her abdomen, ultrasound of her abdomen which was done, EGD by Dr. Barrera, she states nothing acute has been found other than some inflammation around the area her gallbladder was remove. She states every doctor is telling her to follow-up with another doctor. She states she would like answers for her symptoms and solutions. Review of Systems: Review of Systems: Constitutional: Denies fever or chills. [] Eyes: Denies change in visual acuity. [] HENT: Denies nasal congestion or sore throat. [] Respiratory: Denies cough or shortness of breath. [] Cardiovascular: Denies chest pain or edema. [] GI: Reports chronic abdominal pain, nausea, vomiting : Denies dysuria. [] Musculoskeletal: Reports neck pain from vomiting, back pain from vomiting Integument: Denies rash. [] Neurologic: Denies headache, focal weakness or sensory changes. [] Endocrine: Denies polyuria or polydipsia. [] Lymphatic: Denies swollen glands. [] Psychiatric: Denies depression or anxiety. [] Heart Score: C/O Chest Pain: N/A Risk Factors: Risk Factors: DM, Current or recent (<one month) smoker, HTN, HLP, family history of CAD, obesity. Risk Scores: Score 0 - 3: 2.5% MACE over next 6 weeks - Discharge Home Score 4 - 6: 20.3% MACE over next 6 weeks - Admit for Clinical Observation Score 7 - 10: 72.7% MACE over next 6 weeks - Early Invasive Strategies Current Medications: Current Medications Medications (Trade) Dose Ordered Sig/Pebbles Start Time Stop Time Status Last Admin Dose Admin Cyclobenzaprine HCl (Flexeril) 10 mg 1X ONCE 08/26/21 01:00 08/26/21 01:01 Ondansetron HCl (Zofran Odt) 4 mg 1X ONCE 08/26/21 01:00 08/26/21 01:01 Allergies: Allergies: Allergies Coded Allergies Type Severity Reaction Last Updated Verified No Known Drug Allergies 05/10/21 No Physical Exam: PE: Constitutional: Well developed, well nourished, no acute distress, non-toxic appearance. [] HENT: Normocephalic, atraumatic, bilateral external ears normal, oropharynx moist, no oral exudates, nose normal. [] Eyes: PERRLA, EOMI, conjunctiva normal, no discharge. [] Neck: Normal range of motion, no tenderness, supple, no stridor. [] Cardiovascular:Heart rate regular rhythm, no murmur [] Lungs & Thorax: Bilateral breath sounds clear to auscultation [] Abdomen: Bowel sounds normal, soft, no tenderness, no masses, no pulsatile masses. [] Skin: Warm, dry, no erythema, no rash. [] Back: No tenderness, no CVA tenderness. [] Extremities: No tenderness, no cyanosis, no clubbing, ROM intact, no edema. [] Neurologic: Alert and oriented X 3, normal motor function, normal sensory function, no focal deficits noted. [] Psychologic: Affect normal, judgement normal, mood normal. [] Current Patient Data: Vital Signs: Vital Signs Date Time Temp Pulse Resp B/P (MAP) Pulse Ox O2 Delivery O2 Flow Rate FiO2 08/25/21 22:57 97.5 81 18 129/82 (98) 98 Room Air 97.5 EKG: EKG: [] Radiology/Procedures: Radiology/Procedures: [] Course & Med Decision Making: Course & Med Decision Making Pertinent Labs and Imaging studies reviewed. (See chart for details) This is a 26-year-old female patient presented to the ED today complaining of chronic abdominal pain, chronic diarrhea, chronic vomiting, chronic pain to her neck and back, symptoms began April 2021 after her gallbladder was removed. She reports following up with the general surgeon, PCP, GI. She states multiple tests have been done including lab work, EGD, ultrasound yesterday, MRI, she states she was told she has inflammation where her gallbladder was removed other than that no acute findings. I spoke to patient and significant other for work. Recommended to follow-up with the specialist that been assigned to as well as the PCP. Give her prescription for Flexeril and Zofran Dragon Disclaimer: Dragon Disclaimer: This electronic medical record was generated, in whole or in part, using a voice recognition dictation system. Departure Departure Impression: Primary Impression: Chronic abdominal pain Additional Impressions: Nausea and vomiting Qualified Codes: R11.2 - Nausea with vomiting, unspecified Diarrhea Qualified Codes: R19.7 - Diarrhea, unspecified Disposition: 01 HOME / SELF CARE / HOMELESS Condition: STABLE Referrals: Mark GAGE MD (PCP) follow up as soon as you can LATONIA NOVAK MD follow up in 1-2 weeks LATONIA BARRERA MD follow up in 1-2 weeks Patient Instructions: Abdominal Pain (Nonspecific), Diarrhea, [id number], Nausea and Vomiting, [id number] Additional Instructions: You were evaluated in the emergency room for chronic abdominal pain, chronic nausea and vomiting with diarrhea. Please continue following up with your primary care doctor, GI doctors, and general surgeon. Scripts Ondansetron (ONDANSETRON ODT) 4 Mg Tab.rapdis 1 TAB PO PRN Q6-8HRS, #16 TAB Prov: VI JACOB QUILLER OPERATOR 08/26/21 Cyclobenzaprine Hcl (CYCLOBENZAPRINE HCL) 10 Mg Tablet 1 TAB PO TID, #90 TAB Prov: VI JACOB QUILLER OPERATOR 08/26/21 VI JACOB QUILLER OPERATOR Aug 26, 2021 00:34
[2021-08-26] MEDS: ONDANSETRON ODT 4 MG TAB.RAPDIS. PO ONE (00:55)
[2021-08-26] MEDS: CYCLOBENZAPRINE 10 MG TABLET. PO ONE (00:55)
== END 2021-08-26 01:00 | disposition home or self-care (01) ==
LOC: ER 22:53
DX: G89.29 Other chronic pain (principal); R10.11 Right upper quadrant pain; R11.2 Nausea with vomiting, unspecified; R19.7 Diarrhea, unspecified; F31.9 Bipolar disorder, unspecified; K21.9 Gastro-esophageal reflux disease without esophagitis; Z90.49 Acquired absence of other specified parts of digestive tract
CPT/HCPCS: 99283

== ENCOUNTER → 2021-08-31 | Outpatient (CLI) | payer OTHER ==
[2021-08-25 23:27] VITALS: BP 112/78
[~2021-08-31] MED LIST changes: +CYCL10TA19 PO; +ONDA4TAB12 PO
--- NOTE | 2021-08-31 10:17 | KCIC ---
INDICATION: Reason: BILIARY DYSKINESIA / Spl. Instructions: / History: Lap Viki in April 2021. C ontinued nausea and vomiting after eating. COMPARISON: Ultrasound from July [address] from November 2020 TECHNIQUE: MRI images are obtained of the abdomen including three-dimensional MRCP images. FINDINGS: No hydronephrosis. Abdominal aorta is not aneurysmal. Postcholecystectomy changes. No filling defect is seen within the common bile duct which does not jay ear significantly dilated given the patient's postcholecystectomy state. No peripancreatic fluid collection. Diffuse loss of signal within the liver on out of phase images which can be seen with fatty infiltrat ion. T2 hyperintense lesion of the right kidney measuring up to approximately 11 mm could be from a cyst. IMPRESSION: * Postcholecystectomy without significant common bile duct dilation. No stone is seen within the co mmon bile duct. * Diffuse loss of signal within the liver on out of phase images which can be seen with fatty infilt ration. Electronically signed by: Varun Molina MD (08/31/2021 10:14 AM) [id number]
== END ==
LOC: KCIC MRI 08:02
PROVIDERS: ATTEND Family Medicine
DX: N28.89 Other specified disorders of kidney and ureter (principal); K82.8 Other specified diseases of gallbladder; Z90.49 Acquired absence of other specified parts of digestive tract
CPT/HCPCS: 74181

== ENCOUNTER → 2021-10-14 | Day surgery (SDC) | payer OTHER ==
[~2021-10-14] VITALS: Ht 160 cm; Wt 80.7 kg
[~2021-10-14] MED LIST changes: +CLON0.5T PO; +DEXAMETHASONE SOD PHOS 4 MG/ML VIAL ONE; +HYDROmorphone 2 MG/ML INJ. IVP PRN; +IV RINGERS,LACTATED 1000ML 1,000 ML IV SCH; +KETOROLAC 30 MG/ML VIAL. ONE; +LIDOCAINE 2% PF 5 ML VIAL. ONE; +MIDAZOLAM HCL/PF 2 MG/2 ML VIAL. ONE; +MORPHINE SULFATE 2 MG/ML INJ. IVP PRN; +ONDANSETRON PF 4 MG/2 ML VIAL. ONE; +OXYC1TAB15 PO; +PHEN37.599 PO; +PROCHLORPERAZINE 10 MG/2 ML VIAL. IVP PRN; +PROPOFOL 10 MG/ML (20ML) VIAL. IV ONE; +SEVOFLURANE 31 TO 60 MINUTES. IH ONE; +ceFAZolin SODIUM IV Push 1 GM VIAL. IVP PRN; +fentaNYL PF VIAL 100 MCG/2 ML VIAL IVP PRN; +fentaNYL PF VIAL 100 MCG/2 ML VIAL ONE; +oxyCODONE/APAP 5/325 1 TAB TABLET PO ONE
--- NOTE | 2021-10-14 13:19 | PDOC4 ---
BRIEF OPERATIVE NOTE Date: Oct 14, 2021 Pre-Op Diagnosis 1. AUB 2. Post Coital Bleeding Post-Op Diagnosis Same + Endometrial Polyp Procedure Performed Op [facility] [place] Surgeon Dr. Linares Anesthesia Type: General Blood Loss 5 ml Specimens Obtained endometrial polyp Findings endometrial polyp Complications none Operative Note see dictation ANA LINARES Jr., MD Oct 14, 2021 13:19
--- NOTE | 2021-10-14 13:24 | DISCH ---
DISCHARGE INSTRUCTIONS Condition on Discharge Condition on Discharge: Stable Activity After Discharge Activity Instructions for Disc: Activity as tolerated, Other, see below Lifting Instructions after Dis: No heavy lifting Driving Instructions after Dis: Do not drive today Diet after Discharge Diet after Discharge: Regular Wound Incision Care Wound/Incision Care: Other, see below Contacting the DROnur after DC Call your doctor for: If your condition worsens Follow-Up Follow up with: Dr. Linares in 1 week. ANA LINARES Jr., MD Oct 14, 2021 13:23
--- NOTE | 2021-10-14 13:38 | OP ---
DATE OF SURGERY: 10/14/2021 PREOPERATIVE DIAGNOSES: 1. Abnormal uterine bleeding. 2. Postcoital bleeding. POSTOPERATIVE DIAGNOSES: 1. Abnormal uterine bleeding. 2. Postcoital bleeding. 3. Endometrial polyp. PROCEDURE: Operative hysteroscopy. SURGEON: Kory Linares MD ANESTHESIA: LMA. ESTIMATED BLOOD LOSS: 5 mL. COMPLICATIONS: None. FINDINGS: Endometrial polyp. SUMMARY: A 26-year-old female, unresponsive to medical treatment for abnormal uterine bleeding and postcoital bleeding. She was counseled on the risks, benefits and expectation of operative hysteroscopy and voiced clear understanding to proceed. DESCRIPTION OF PROCEDURE: The patient was taken to surgery suite and placed in dorsal lithotomy position, was prepped with Betadine solution and draped in sterile fashion. After adequate anesthesia, a weighted speculum and curved [place] placed vaginally. Anterior lip of the cervix was grasped with a single-tooth tenaculum. Cervix was dilated with Hegar dilators up to a size 7. The TruClear hysteroscope was positioned. There was a large endometrial polyp including the endometrial canal, which was removed using the TruClear device. Afterwards, the endometrium was homogenous. The fallopian tube ostia appeared patent bilaterally. The hysteroscope was removed. Single-tooth tenaculum and weighted speculum were removed. The patient tolerated the procedure well and was taken to recovery room in stable condition. Sponge count correct x 3. NATY/KIRAN DR: Taylor TID: [id number]
[2021-10-14 14:21] VITALS: BP 111/74
--- NOTE | 2021-10-15 18:08 | PATHOLOGY ---
[facility] Accession Number: [id number] . 01 Material submitted: . endometrium - ENDOMETRIAL POLYP . 01 Clinical history: . OPERATIVE HYSTEROSCOPY . 02 Diagnosis: Endometrial curettings: - Endometrial polyp. - Inactive/weakly proliferative endometrium. (SORAYA:marcia; 10/15/2021) R 10/15/2021 1550 Local . 02 Comment: There is no evidence of hyperplasia or malignancy. (SORAYAM:marcia; 10/15/2021) . 02 Electronically signed: . Michael Melendez MD, Pathologist NPI- [id number] . 01 Gross description: . The specimen is received in formalin, labeled "Ye, Alexa, endometrial polyp". Received are multiple segments of pink-norris tissue measuring 2.0 x 1.0 x 0.2 cm aggregate dimensions. The specimen is filtered and entirely submitted in cassette A1. ([facility]; 10/14/2021) NRI/NRI 10/14/20212002 Local . 02 Pathologist provided ICD-10: N84.0 . 02 CPT . 198859 Specimen Comment: A courtesy copy of this report has been sent to [phone] Specimen Comment: Report sent to Performed at: [address] [facility] [address], [place], [place] [id number] MD Juancarlos Huggins MD Phone: [phone] Performed at: 02 [facility] [address] [place], [place] [id number] MD Michael Melendez MD Phone: [phone]
== END | disposition home or self-care (01) ==
LOC: SURG 10:32
PROVIDERS: ATTEND Obstetrics & Gynecology
DX: N93.8 Other specified abnormal uterine and vaginal bleeding (principal); N84.0 Polyp of corpus uteri; F41.9 Anxiety disorder, unspecified; Z79.899 Other long term (current) drug therapy; Z98.890 Other specified postprocedural states; Z90.49 Acquired absence of other specified parts of digestive tract; Z88.8 Allergy status to other drugs, medicaments and biological substances
CPT/HCPCS: 58558; 81025; A4930; J0690; J1100; J1885; J2250; J2405; J2704; J3010; 88305